=== PATIENT | male | born 1985 | race Caucasian/White ===

== ENCOUNTER 2023-12-28 18:55 | Emergency (ER) | payer BC, SELFPAY ==
[2023-12-28 19:00] VITALS: BP 154/95
[2023-12-28 19:35] LABS: % Basophils 0.7 % (0-2); % Eosinophils 2.2 % (0-6); % Lymphocytes 31.2 % (20.5-51.1); % Monocytes 5.6 % (1.7-9.3); % Neutrophils 58.3 % (42.2-75.2); Absolute Basophils 0.1 10^3/uL (0-0.2); Absolute Eosinophils 0.2 10^3/uL (0-0.7); Absolute Immature Granulocytes 0.2 10^3/uL (0-0.05); Absolute Lymphocytes 2.8 10^3/uL (1.2-3.4); Absolute Monocytes 0.5 10^3/uL (0.1-0.6); Absolute Neutrophils 5.3 10^3/uL (1.4-6.5); Hematocrit 46.8 % (39.0-52.0); Hemoglobin 16.7 g/dL (13.0-18.0); Mean Corp Hgb Conc. 35.7 g/dL (33.0-37.0); Mean Corpuscular Hgb 29.8 pg (27.0-31.0); Mean Corpuscular Volume 83.4 fL (80.0-94.0); Mean Platelet Volume 10.9 fL (7.4-10.4); Nucleated Red Blood Cells % 0 % (-); Platelet Count 311 10^3/uL (130-400); Red Blood Cell Count 5.61 10^6/uL (4.70-6.10)
[2023-12-28 19:47] LABS: Lactic Acid 1.5 mmol/L (0.7-2.0)
[2023-12-28 19:49] LABS: ALT (SGPT) 43 U/L (0-50); AST (SGOT) 31 U/L (17-59); Albumin 4.1 g/dl (3.5-5.0); Alkaline Phosphatase 78 U/L (38-126); Blood Urea Nitrogen 11 mg/dl (9-20); Calcium 9.3 mg/dl (8.4-10.2); Carbon Dioxide 30 mmol/L (22-30); Chloride 104 mmol/L (98-107); Glucose 112 mg/dl (70-99); Potassium 4.4 mmol/L (3.5-5.1); Sodium 137 mmol/L (135-145); Total Bilirubin 0.7 mg/dl (0.2-1.3); Total Protein 7.1 g/dl (6.3-8.2); eGFR > 60.00
[2023-12-28 19:55] VITALS: BMI 38.8
--- NOTE | 2023-12-28 20:02 | ED.GENMED ---
History of Present Illness
General
Chief Complaint: Facial Problem
Source: patient
Time Seen by Provider: 12/28/23 19:33
Travel History
Have you had any contact with someone who has COVID-19?: No
Do you have any symptoms of coronavirus? Fever > 100 degrees, chills, cough, shortness of breath, sore throat, loss of taste or smell, muscle aches, or headache?: No
History of Present Illness
History of Present Illness:
This patient is a 38-year-old male who says he went to bed feeling perfectly well. He woke at 6:30 AM with complaints of discomfort around his right jaw area. He said it felt like his had punched him. At that time he did not have swelling
that he noticed. Then, around noon today he noted mild swelling in the right preauricular area he applied ice every 20 minutes, but since then the swelling has gotten progressively worse to the point that since 6 PM he notes mild trismus and it
hurts to open his mouth in the right facial area. He denies fever, chills, sweats, body aches, recent dental work, chest pain, dyspnea, nausea, vomiting, abdominal pain, neck pain. Patient states that he does have 2 crowns that broke, but denies
dental pain or swelling.
Past History
Past History
ED Past Medical History: GERD, HTN and Hypercholesterolemia
ED Past Surgical History: Appendectomy and Other
Social History
Tobacco: Former smoker
Alcohol: None
Drug: None
Personal:
Living: with family
Employment: Employed
Phy Exam
Physical Exam
Physical Exam:
GENERAL: Alert , in no apparent distress
EYE: pupils equal and reactive, no photophobia, EOMI
NECK: Supple, no significant adenopathy, no submental swelling.
ENT: o/p clr, mmm, TMs clear bilaterally. There is swelling and slight redness associated with tenderness to palpation in the right preauricular area extending slightly to the angle of the mandible. No crepitus or fluctuance drainage. No mastoid
tenderness. No abnormalities of the ear auricular area. No percussion tenderness on dental exam or associated gingival abnormalities. Patient has very slight trismus. Voice is clear, no uvular edema..
CARDIAC: Regular rate and rhythm .
LUNGS: Clear breath sounds bilaterally, no acute respiratory distress, no wheezes/rales/rhonchi
ABDOMEN: Soft, without focal tenderness, no r/g, no cvat
NEUROLOGICAL: Alert and oriented, no focal neuro deficits
SKIN: Warm and dry, skin intact.
MUSCULOSKELETAL: No edema, well perfused.
PSYCH: Normal and appropriate interaction.
Course
Orders/Labs/Results
Orders:
Orders
12/28/23 19:09
IV Insert/Care/Rem.- Treatment PRN
O2 Therapy [RESP] Urgent
Titrate/Wean O2 to maintain O2 sat greater than (%): 93
Special Instructions: TO MAINTAIN CONTINUOUS O2 SATS > OR = 93%
12/28/23 19:15
Complete Blood Count/With Diff Urgent
Comprehensive Metabolic Panel Urgent
Lactic Acid Q4H
Comment: ON ICE, CANCEL 2ND ORDER IF FIRST LACTIC ACID LEVEL <2
Blood Culture Q30M
ROHIT Source: Blood/Venous
Specimen Description:
Comment: FROM 2 SEPARATE SITES
12/28/23 19:53
CT Facial Bones W/ Iv Contrast Urgent
Comment:
Reason For Exam: r FACIAL SWELLING
12/28/23 19:58
Blood Culture Q30M
ROHIT Source: Blood/Venous
Specimen Description:
Comment: FROM 2 SEPARATE SITES
12/28/23 20:10
Ketorolac [Toradol] 15 mg IV NOW STA
12/28/23 20:50
Clindamycin 900 mg/50 ml [Cleocin] 900 mg in 50 ml IV NOW
Abnormal Lab Results
12/28/23
19:15
MPV 10.9 H fL
(7.4-10.4)
Abs Immat Gran (auto) 0.2 H 10^3/uL
(0-0.05)
Immature Gran % 2.0 H %
(0-0.5)
Glucose 112 H mg/dl
(70-99)
12/28/23 19:15
12/28/23 19:15
Vital Signs
Initial and Last Documented VS:
Initial Vital Signs
Temp Pulse Resp BP Pulse Ox
97 F 79 20 154/95 99
12/28/23 19:00 12/28/23 19:00 12/28/23 19:00 12/28/23 19:00 12/28/23 19:00
Last Documented Vital Signs
Temp Pulse Resp BP Pulse Ox
97 F 78 16 127/87 99
12/28/23 19:00 12/28/23 21:10 12/28/23 21:10 12/28/23 21:10 12/28/23 21:10
*Critical Care Note
Total Time (30-74mins, 75-104mins- exclusive of procedures): Not Applicable
Update Note
Update Note:
Patient presents to the Emergency Department with ___right-sided facial pain and swelling
Number and Complexity of Problems Addressed at the Encounter
� Chronic conditions affecting care:
� Acute Exacerbation and/or Progression of Chronic Illness:
� Differential Diagnosis includes: But not limited to parotid stone, parotid infection, soft tissue infection related to dental infection, abscess, etc.
Amount and/or Complexity of Data to be Reviewed and Analyzed
� I performed an independent evaluation of and my interpretation is:
EKG:
CT: Read by vision� Right acute parotiditis, no ductal dilatation or stone, minimal edema minimal ethmoid sinusitis mucous retention cyst inferior to maxillary sinuses bilaterally
Xrays:
Laboratory Studies: Generally unremarkable
Other:
� Review of other/old records reveals:
� Clinical information was obtained by an independent historian:
� Prescriptions/Medications Considered but not given:
� Further testing considered but not performed:
Risk of Complications and/or Morbidity or Mortality of Patient Management
� Social determinants of health affecting care:
� Discussion with other providers (PCP, Hospitalists, Consultants, etc):
� Escalation of care including admission/observation vs risk of discharge considered: CAT scan consistent with parotiditis will encourage sialagogues and prescribe antibiotics with close follow-up. Discussed with patient
importance of follow-up and reasons return to the ER.
ED Attending Note
-
Portions of this chart may have been created with voice recognition software.� Occasional wrong word or��sound alike� substitutions may have occurred due to the inherent limitations of voice recognition software.
Discharge Plan
Departure
Patient Disposition: Home (Routine Discharge)
Date of Disposition: 12/28/23
Time of Disposition: 22:07
Patient with high blood pressure during this ER visit?: Yes
Condition: Good
Discharge Problem:
Acute parotitis
Instructions: Parotitis, BLOOD PRESSURE
Prescriptions:
New
clindamycin HCl 300 mg capsule
600 mg PO TID 7 Days Qty: 42 0RF
No Action
pantoprazole 40 mg Tablet,Delayed Release (Dr/Ec)
40 mg PO DAILY
atorvastatin 10 mg Tablet
10 mg PO DAILY
olmesartan 5 mg Tablet
5 mg PO DAILY
Tremfya 100 mg/mL Syringe
100 mg SC Q8W
Referrals:
Satnam Willard MD [Family Provider] - Follow up in 2-3 days
Activity Restrictions/Additional Instructions:
IF YOU DEVELOP TROUBLE SWALLOWING, TROUBLE BREATHING, FEVER, INCREASING PAIN, INCREASING SWELLING, DROOLING, CHEST PAIN, SHORTNESS OF BREATH, OR OTHER WORRISOME SIGNS, PLEASE RETURN TO THE ER IMMEDIATELY.
Interventions
Interventions:
*Risk Screen - Suicide Last Done: 12/28/23 19:00
*General Assessment Last Done: 12/28/23 19:00
*Neglect/Abuse Screening Last Done: 12/28/23 19:00
ED- Fall Risk Assessment Last Done: 12/28/23 19:00
*ED COVID-19 Vaccine History Last Done: 12/28/23 19:00
ED- Neurological Assessment Last Done: 12/28/23 20:57
ED-Skin Assessment Last Done: 12/28/23 20:57
[2023-12-28] MEDS: TORADOL 15 MG IV (20:14)
[2023-12-28] MEDS: CLEOCIN 50 IV (21:03)
[2023-12-28 21:10] VITALS: BP 127/87
== END 2023-12-28 22:25 | disposition home or self-care (01) ==
LOC: EMR 18:55
PROVIDERS: EMERGENCY PHYSICIAN Emergency Medicine; FAMILY PHYSICIAN Internal Medicine
DX: K11.21 Acute sialoadenitis (principal); I10 Essential (primary) hypertension; Z87.891 Personal history of nicotine dependence
CPT/HCPCS: 99285; 96365; 96375; 70487; 80053; 83605; 85025; 87040; Q9967

== ENCOUNTER 2025-03-31 14:30 | Emergency (ER) | payer BC, SELFPAY ==
[2025-03-31 14:32] VITALS: BP 121/82
--- NOTE | 2025-03-31 15:04 | ED.GENMED ---
History of Present Illness
General
Chief Complaint: Musculo-Skeletal Complaint
Time Seen by Provider: 03/31/25 14:50
History of Present Illness
History of Present Illness:
39-year-old male presents the emergency department for evaluation of left knee pain has been ongoing for the past 4 to 5 days. He states he recently traveled to [place] and was walking 'greater than 10 miles a day'. Denies any acute falls or trauma.
Has been having increasing difficulty walking on the leg. Using NSAIDs without relief
Past History
Past History
ED Past Medical History: GERD, HTN and Hypercholesterolemia
ED Past Surgical History: Appendectomy and Other
Social History
Tobacco: Former smoker
Alcohol: None
Drug: None
Personal:
Living: with family
Employment: Employed
Review of Systems
Review of Systems
Allergies reviewed?: Yes
All Other Systems: ROS reviewed and negative except as documented in HPI and ROS
Phy Exam
Physical Exam
Physical Exam:
GEN: Well appearing, NAD, WDWN
HEENT: Oral mucosa moist, no scleral icterus
Cardiac: Regular rate
Lung: No respiratory distress, no tachypnea
MSK: No gross deformity or injuries. Left knee passive range of motion with no pain. No joint effusion. No joint laxity on anterior or posterior drawer, no laxity on varus or valgus stress testing however pain is elicited with varus stress
testing. No tenderness along the patella tendon
Skin: Good color, no pallor or jaundice, no rashes
Neuro: AO x3, moves all extremities freely
Psych: Calm, cooperative
Course
Orders/Labs/Results
Orders:
Orders
03/31/25 14:35
Knee, Left 4 or More Views [CR Knee - Left 4 Or More View*] Urgent
Comment:
Reason For Exam: pain
Vital Signs
Initial and Last Documented VS:
Initial Vital Signs
Temp Pulse Resp BP Pulse Ox
98.1 F 88 18 121/82 98
03/31/25 14:32 03/31/25 14:32 03/31/25 14:32 03/31/25 14:32 03/31/25 14:32
Last Documented Vital Signs
Temp Pulse Resp BP Pulse Ox
98.1 F 88 18 121/82 98
03/31/25 14:32 03/31/25 14:32 03/31/25 14:32 03/31/25 14:32 03/31/25 14:32
MDM/Problems Addressed
MDM/Problems Addressed:
Exam not consistent with ligamentous or meniscal rupture, recommend outpatient Ortho evaluation if NSAIDs do not provide relief
*Critical Care Note
Total Time (30-74mins, 75-104mins- exclusive of procedures): Not Applicable
ED Attending Note
-
Portions of this chart may have been created with voice recognition software.� Occasional wrong word or��sound alike� substitutions may have occurred due to the inherent limitations of voice recognition software.
Discharge Plan
Departure
Patient Disposition: Home (Routine Discharge)
Date of Disposition: 03/31/25
Time of Disposition: 15:39
Patient with high blood pressure during this ER visit?: No
Discharge Problem:
Knee pain, left
Instructions: Knee Pain (DC)
Prescriptions:
No Action
pantoprazole 40 mg Tablet,Delayed Release (Dr/Ec)
40 mg PO DAILY
atorvastatin 10 mg Tablet
10 mg PO DAILY
olmesartan 5 mg Tablet
5 mg PO DAILY
Tremfya 100 mg/mL Syringe
100 mg SC Q8W
clindamycin HCl 300 mg capsule
600 mg PO TID 7 Days Qty: 42 0RF
Referrals:
Cuate Stallworth MD [Active] -
Interventions
Interventions:
*Risk Screen - Suicide Last Done: 03/31/25 14:32
*General Assessment Last Done: 03/31/25 14:32
*Neglect/Abuse Screening Last Done: 03/31/25 14:32
*Nursing Disposition Last Done: 03/31/25 15:46
ED-Musculoskeletal Assessment Last Done: 03/31/25 15:17
Discharge Date and Time
Discharge Date/Time: 03/31/25 15:47
Print Language: MALTESE
== END 2025-03-31 15:47 | disposition home or self-care (01) ==
LOC: EMR 14:30
PROVIDERS: EMERGENCY PHYSICIAN Emergency Medicine; FAMILY PHYSICIAN Internal Medicine
DX: M25.562 Pain in left knee (principal); R26.2 Difficulty in walking, not elsewhere classified; I10 Essential (primary) hypertension; E78.00 Pure hypercholesterolemia, unspecified; K21.9 Gastro-esophageal reflux disease without esophagitis; Z87.891 Personal history of nicotine dependence; Z88.1 Allergy status to other antibiotic agents; Z88.5 Allergy status to narcotic agent; Z88.8 Allergy status to other drugs, medicaments and biological substances
CPT/HCPCS: 99283; 73564